=== PATIENT | female | born 1985 | race Caucasian/White ===

== ENCOUNTER 2016-10-27 19:38 | Emergency (ER) | payer OTHER ==
[~2016-10-27] VITALS: Ht 165.1 cm; Wt 81.6 kg
[~2016-10-27 19:38] MED LIST: PERC5TAB8 OR
[2016-10-27] MEDS ORDERED: AZO95TAB PO (20:07)
[2016-10-27] MEDS ORDERED: KETOROLAC 30 MG/ML VIAL (J1885) IM ONE (22:00)
[2016-10-27 22:18] LABS: MICROSCOPIC INDICATED? MAN YES (NO)
[2016-10-27 22:28] LABS: MICROSCOPIC EXAM PERFORMED
[2016-10-27 22:29] LABS: RBC, URINE TNTC /hpf (0-3); WBC, URINE TNTC /hpf (0-3)
[2016-10-27 22:30] LABS: BACTERIA, URINE MOD AMOUNT; HYALINE CAST, URINE NONE SEEN /lpf (0-1); SQUAMOUS EPITHELIAL CELL URINE LARGE AMOUNT /hpf (SMALL AMT)
[2016-10-27] MEDS ORDERED: MACR100C3 PO (23:00)
[2016-10-27] MEDS ORDERED: PYRI200T5 PO (23:01)
[2016-10-27] MEDS ORDERED: NITROFURANTOIN (MACROBID) 100 MG CAP PO ONE (23:15)
[2016-10-27 23:28] VITALS: BP 146/76
== END 2016-10-28 00:13 | disposition home or self-care (01) ==
LOC: M ED 21:03
DX: N39.0 Urinary tract infection, site not specified (principal)
CPT/HCPCS: 81000; 81015; 81025; 87088; 87186; 99282; J1885

== ENCOUNTER 2017-05-18 19:28 | Emergency (ER) | payer OTHER ==
[~2017-05-18] VITALS: Ht 170.2 cm; Wt 86.4 kg
[~2017-05-18 19:28] MED LIST changes: +AZO95TAB PO; +MACR100C43 PO; +PYRI1TAB5 PO
[2017-05-18 19:34] VITALS: BP 161/85
[2017-05-18] MEDS ORDERED: DULO1CAP2 (19:45)
[2017-05-18] MEDS ORDERED: ZOMI5TAB2 (19:45)
[2017-05-18] MEDS ORDERED: BUPR150T5 (19:45)
[2017-05-18] MEDS ORDERED: ZOFR4TAB3 PO (20:28)
[2017-05-18] MEDS ORDERED: NORCOTAB PO (20:29)
[2017-05-18] MEDS ORDERED: ONDANSETRON 4 MG ORAL DISINTEGRATING TAB (S0181) PO ONE (20:30)
[2017-05-18] MEDS ORDERED: NORCO, ANEXSIA 5/325MG TABLET (HYDROcodone/ACETAMINOPHEN) PO ONE (20:30)
== END 2017-05-18 20:44 | disposition home or self-care (01) ==
LOC: M ED 19:28
DX: S06.0X0A Concussion without loss of consciousness, initial encounter (principal); S13.4XXA Sprain of ligaments of cervical spine, initial encounter; Z87.891 Personal history of nicotine dependence; W22.09XA Striking against other stationary object, initial encounter; Y92.094 Garage of other non-institutional residence as the place of occurrence of the external cause; Y93.89 Activity, other specified; Y99.9 Unspecified external cause status

== ENCOUNTER 2018-02-05 20:49 | Emergency (ER) | payer OTHER ==
[2018-02-05] MEDS: ONDANSETRON 4 MG ORAL DISINTEGRATING TAB (Q0162 PER 1MG) PO (23:26)
[2018-02-05] MEDS: KETOROLAC TROMETHAMINE 10 MG TAB PO (23:26)
[2018-02-06] MEDS: ONDANSETRON 4 MG ORAL DISINTEGRATING TAB (Q0162 PER 1MG) PO (01:04)
[2018-02-06] MEDS: ACETAMINOPH W/CODEINE #3 TAB UD PO (01:04)
== END 2018-02-06 01:05 | disposition home or self-care (01) ==
LOC: M ED 02-06 01:05
DX: S06.0X0A Concussion without loss of consciousness, initial encounter (principal); W22.09XA Striking against other stationary object, initial encounter; Y92.89 Other specified places as the place of occurrence of the external cause; F33.9 Major depressive disorder, recurrent, unspecified; F41.9 Anxiety disorder, unspecified; Z87.820 Personal history of traumatic brain injury; Z98.890 Other specified postprocedural states; Z91.048 Other nonmedicinal substance allergy status
CPT/HCPCS: Q0162

== ENCOUNTER → 2018-02-14 | Outpatient (CLI) | payer OTHER | LOC: M RAD 17:56 | DX: G43.709 Chronic migraine without aura, not intractable, without status migrainosus (principal) | CPT/HCPCS: 70544 ==